=== PATIENT | male | born 1955 | race Caucasian/White ===

== ENCOUNTER 2021-01-26 15:58 | Emergency (ER) | payer OTHER, BC ==
[~2021-01-26] VITALS: Ht 185.4 cm; Wt 98.9 kg
[2021-01-26 16:06] VITALS: BP 125/48
--- NOTE | 2021-01-26 17:24 | NUR ---
65/M biba from dialysis center with c/o bleeding from left arm. Per EMS patient was receiving his usual dialysis as scheduled when the staff stated they attempted to remove the line from his fistula when a "scab was scraped off" causing bleeding. Patient arrived with sheath clamp in place, bleeding controlled at this time. Patient denies pain at this time, denies fever, chills, chest pain or shortness of breath. Patient has no other complaints at this time.
--- NOTE | 2021-01-26 18:38 | NUR ---
[facility] IS ARRANGING TRANSPORTATION.
--- NOTE | 2021-01-26 19:38 | NUR ---
PATIENT L UPPER ARM FISTULA BLEEDING TURNIQUETTE PLACED ON ARM.
--- NOTE | 2021-01-26 19:38 | NUR ---
MACHELLED MADE AWARE, ABOUT TURNIQUETTE PLACEMENT. MACHELLED AT BEDSIDE.
[2021-01-26] MEDS ORDERED: PROTHROMBIN COMPLEX HUMAN 500 UNITS KIT IV ONE ×2 (19:45→20:10)
[2021-01-26 20:15] VITALS: BP 120/79
--- NOTE | 2021-01-26 20:15 | NUR ---
Patient to be transferred to [facility]. Is being transferred due to HIGHER LEVEL OF CARE. Receiving facility has accepting physician and available space. ER physician has signed transfer form. Patient or responsible democrat has agreed to transfer and signed form. Patient belongings inventoried and will be sent with patient. Copy of nursing notes, lab reports, EKG, Physicians Orders and X-rays to be sent with patient. Report called to FELIZ (AT THE [facility]) at receiving facility. [facility] ambulance service has been called for transfer. ETA is 20 MINS.
== END 2021-01-26 20:15 | disposition short-term general hospital (02) ==
LOC: MED 15:58
DX: T82.838A Hemorrhage due to vascular prosthetic devices, implants and grafts, initial encounter (principal); N18.6 End stage renal disease; Z99.2 Dependence on renal dialysis; Z98.890 Other specified postprocedural states; Z86.73 Personal history of transient ischemic attack (TIA), and cerebral infarction without residual deficits; Z95.0 Presence of cardiac pacemaker; Y92.89 Other specified places as the place of occurrence of the external cause
CPT/HCPCS: 99291